=== PATIENT | female | born 1975 | race Two or more races ===

== ENCOUNTER 2018-01-19 14:31 | Outpatient (CLI) | payer OTHER ==
[~2018-01-19 14:31] MED LIST: ANTIVERT25 M1 PO; METFORMIN HCL1000 M1
== END 2018-01-19 14:43 | disposition home or self-care (01) ==
LOC: MAMO-SONO 14:31
DX: Z12.31 Encounter for screening mammogram for malignant neoplasm of breast (principal); N60.11 Diffuse cystic mastopathy of right breast; N60.12 Diffuse cystic mastopathy of left breast

== ENCOUNTER 2018-02-01 19:39 | Emergency (ER) | payer OTHER ==
[~2018-02-01] VITALS: Ht 165.1 cm; Wt 72.6 kg
[2018-02-01] MEDS ORDERED: LEVAQUIN750 MG (20:11)
== END 2018-02-02 00:17 | disposition home or self-care (01) ==
LOC: ER 19:39
DX: R42 Dizziness and giddiness (principal); T37.8X5A Adverse effect of other specified systemic anti-infectives and antiparasitics, initial encounter; Y92.89 Other specified places as the place of occurrence of the external cause

== ENCOUNTER 2018-04-23 15:47 | Emergency (ER) | payer OTHER ==
[~2018-04-23] VITALS: Ht 165.1 cm; Wt 74.8 kg
[~2018-04-23 15:47] MED LIST changes: +LEVAQUIN750 MG
== END 2018-04-23 22:04 | disposition home or self-care (01) ==
LOC: ER 15:47
DX: N39.0 Urinary tract infection, site not specified (principal)

== ENCOUNTER 2019-01-24 13:08 | Emergency (ER) | payer OTHER ==
[~2019-01-24] VITALS: Ht 165.1 cm; Wt 77.1 kg
== END 2019-01-24 19:46 | disposition home or self-care (01) ==
LOC: ER 13:08
DX: B34.9 Viral infection, unspecified (principal); M54.2 Cervicalgia; R51 Headache; R20.0 Anesthesia of skin

== ENCOUNTER 2019-04-02 07:15 | Emergency (ER) | payer OTHER ==
[~2019-04-02] VITALS: Ht 162.6 cm; Wt 77.1 kg
== END 2019-04-02 13:01 | disposition home or self-care (01) ==
LOC: ER 07:15
DX: N39.0 Urinary tract infection, site not specified (principal); R10.31 Right lower quadrant pain

== ENCOUNTER 2019-05-11 15:46 | Emergency (ER) | payer OTHER ==
[~2019-05-11] VITALS: Ht 162.6 cm; Wt 77.1 kg
== END 2019-05-11 21:18 | disposition home or self-care (01) ==
LOC: ER 15:46
DX: N83.291 Other ovarian cyst, right side (principal); N39.0 Urinary tract infection, site not specified; R10.31 Right lower quadrant pain; R11.0 Nausea

== ENCOUNTER 2019-08-20 12:15 | Emergency (ER) | payer OTHER ==
[~2019-08-20] VITALS: Ht 165.1 cm; Wt 77.1 kg
== END 2019-08-20 17:40 | disposition home or self-care (01) ==
LOC: ER 12:15
DX: K52.89 Other specified noninfective gastroenteritis and colitis (principal); N39.0 Urinary tract infection, site not specified

== ENCOUNTER 2019-11-21 18:47 | Emergency (ER) | payer OTHER ==
[~2019-11-21] VITALS: Ht 165.1 cm; Wt 77.1 kg
[2019-11-21] MEDS ORDERED: METFORMIN HCL500 M3 (19:00)
== END 2019-11-21 22:36 | disposition home or self-care (01) ==
LOC: ER 18:47
DX: J06.9 Acute upper respiratory infection, unspecified (principal)